=== PATIENT | male | born 1950 | race Caucasian/White ===

== ENCOUNTER → 2019-12-24 | Outpatient (CLI) | payer OTHER, BC ==
[~2019-12-24] MED LIST: CELEBREX 200 M200 MG PO; INDERAL LA60 M1 PO; NEXIUM 40 MG CA40 M1 PO; PROPECIA PO
== END ==
LOC: SJCVCIMAG 08:17
PROVIDERS: ATTEND Internal Medicine
DX: I08.8 Other rheumatic multiple valve diseases (principal); I27.20 Pulmonary hypertension, unspecified; E78.5 Hyperlipidemia, unspecified; F17.210 Nicotine dependence, cigarettes, uncomplicated; Z79.899 Other long term (current) drug therapy; Z79.82 Long term (current) use of aspirin; Z82.49 Family history of ischemic heart disease and other diseases of the circulatory system

== ENCOUNTER → 2021-07-13 | Outpatient (CLI) | payer OTHER, BC | LOC: SJCVCIMAG 11:10 → SJCVC 11:10 | PROVIDERS: ATTEND Internal Medicine | DX: R94.31 Abnormal electrocardiogram [ECG] [EKG] (principal); I34.1 Nonrheumatic mitral (valve) prolapse; I34.0 Nonrheumatic mitral (valve) insufficiency; I48.0 Paroxysmal atrial fibrillation; I49.3 Ventricular premature depolarization; E78.5 Hyperlipidemia, unspecified; F17.210 Nicotine dependence, cigarettes, uncomplicated; Z82.49 Family history of ischemic heart disease and other diseases of the circulatory system; Z72.89 Other problems related to lifestyle; Z79.82 Long term (current) use of aspirin; Z79.899 Other long term (current) drug therapy; Z88.8 Allergy status to other drugs, medicaments and biological substances ==